=== PATIENT | female | born 1965 | race Caucasian/White ===

== ENCOUNTER 2018-09-01 14:10 | Emergency (ER) | payer OTHER, BC ==
[~2018-09-01] VITALS: Ht 162.6 cm; Wt 59.9 kg
[2018-09-01] MEDS ORDERED: TRINTELLIX5 MG PO (15:04)
[2018-09-01] MEDS ORDERED: AMBIEN5 MG PO (15:04)
== END 2018-09-01 22:08 | disposition home or self-care (01) ==
LOC: ER 14:10
DX: S10.83XA Contusion of other specified part of neck, initial encounter (principal); W18.39XA Other fall on same level, initial encounter; Y93.89 Activity, other specified; Y92.89 Other specified places as the place of occurrence of the external cause; Y99.8 Other external cause status